=== PATIENT | male | born 1955 | race Two or more races ===

== ENCOUNTER 2018-07-06 13:13 | Emergency (ER) | payer SELFPAY ==
[~2018-07-06] VITALS: Ht 167.6 cm; Wt 54.4 kg
[2018-07-06] MEDS ORDERED: IV NORMAL SALINE 1000ML BAG 1,000 ML IV SCH (13:28)
[2018-07-06] MEDS ORDERED: fentaNYL PF VIAL 100 MCG/2 ML VIAL IV PRN (13:30)
[2018-07-06 13:43] LABS: BASO % 0 % (0-3); EOS % 0 % (0-3); HEMATOCRIT 44.4 % (39.0-53.0); HEMOGLOBIN 14.8 g/dL (13.0-17.5); LYMPH # 0.5 x10^3/uL (1.0-4.8); LYMPH % 2 % (24-48); MEAN CORPUSCULAR HEMOGLOBIN 30 pg (25-35); MEAN CORPUSCULAR HGB CONC 33 g/dL (31-37); MEAN CORPUSCULAR VOLUME 90 fL (79-100); MONO # 0.8 x10^3/uL (0.0-1.1); MONO % 4 % (0-9); NEUT # 18.4 x10^3uL (1.8-7.7); NEUT % 94 % (31-73); PLATELET COUNT 203 x10^3/uL (140-400); RED BLOOD COUNT 4.92 x10^6/uL (4.30-5.70); RED CELL DISTRIBUTION WIDTH 13.5 % (11.5-14.5); WHITE BLOOD COUNT 19.7 x10^3/uL (4.0-11.0)
[2018-07-06 13:50] LABS: CALCIUM 8.9 mg/dL (8.5-10.1); CREATININE 0.9 mg/dL (0.7-1.3)
[2018-07-06 13:56] LABS: ALBUMIN 3.9 g/dL (3.4-5.0); ALBUMIN/GLOBULIN RATIO 1.1 (1.0-1.7); MAGNESIUM 1.8 mg/dL (1.8-2.4); TOTAL BILIRUBIN 0.6 mg/dL (0.2-1.0); TOTAL PROTEIN 7.6 g/dL (6.4-8.2)
[2018-07-06 14:10] LABS: BILIRUBIN,URINE NEGATIVE (NEG); CLARITY,URINE CLEAR; COLOR,URINE YELLOW; NITRITE,URINE NEGATIVE (NEG); PROTEIN,URINE NEGATIVE (NEG-TRACE); UROBILINOGEN,URINE 0.2 mg/dL (0.2 mg/dL)
--- NOTE | 2018-07-06 14:10 | EKG ---
[facility] [address] [place] [address] Test Date: 2018-07-06 Test Time: 13:19:11 Pat Name: MARLEN EPPS Department: Room: Gender: M Service Assistant: : 1955 Requested By: CHELSEY SAUCEDA Order Number: [id number] Reading MD: Measurements Intervals [place] Rate: 117 P: -2 OR: 124 QRS: 83 QRSD: 88 T: 64 QT: 304 QTc: 428 Interpretive Statements SINUS TACHYCARDIA LEFT ATRIAL ABNORMALITY ABNORMAL ECG RI6.01 No previous ECG available for comparison
[2018-07-06 14:23] LABS: BACTERIA,URINE 0 /HPF (0-FEW); RBC,URINE OCC /HPF (0-2); WBC,URINE 0 /HPF (0-4)
--- NOTE | 2018-07-06 14:33 | PHYS DOC ---
Past Medical History Past Medical History: No Pertinent History Past Surgical History: Appendectomy Alcohol Use: None Drug Use: None Adult General Chief Complaint Chief Complaint: ABDOMINAL PAIN HPI HPI Patient is a 63-year-old male who presents with complaint of mid abdominal pain with nausea and diarrhea that started at about 9:00 this morning. Patient rates the pain in his abdomen at about a 6 out of 10. He describes pain as being dull and crampy. He denies any chest pain or shortness of breath. He denies any radiation of the pain in his abdomen. Patient also denies any fever. Patient states symptoms are worsened when he eats. Review of Systems Review of Systems Constitutional: Denies fever or chills [] Respiratory: Denies cough or shortness of breath [] Cardiovascular: No additional information not addressed in HPI [] GI: Complains of mid abdominal pain with nausea and diarrhea [] : Denies dysuria or hematuria [] Musculoskeletal: Denies back pain or joint pain [] Integument: Denies rash or skin lesions [] Neurologic: Denies headache, focal weakness or sensory changes [] All other systems were reviewed and found to be within normal limits, except as documented in this note. Current Medications Current Medications Current Medications Medications (Trade) Dose Ordered Sig/Pam Start Time Stop Time Status Last Admin Dose Admin Fentanyl Citrate (Fentanyl 2ml Vial) 25 mcg PRN Q15MIN PRN 07/06/18 13:30 07/07/18 13:29 07/06/18 13:55 25 MCG Info (CONTRAST GIVEN -- Rx MONITORING) 1 each PRN DAILY PRN 07/06/18 14:45 07/08/18 14:44 Iohexol (Omnipaque 300 Mg/ml) 75 ml 1X ONCE 07/06/18 14:45 07/06/18 14:46 DC 07/06/18 14:50 75 ML Sodium Chloride 1,000 ml @ 1,000 mls/hr Q1H 07/06/18 13:28 07/06/18 14:27 DC 07/06/18 13:55 1,000 MLS/HR Allergies Allergies Allergies Coded Allergies Type Severity Reaction Last Updated Verified No Known Drug Allergies 07/06/18 No Physical Exam Physical Exam Constitutional: Well developed, well nourished, no acute distress, non-toxic appearance. [] HENT: Normocephalic, atraumatic, bilateral external ears normal, oropharynx moist, no oral exudates, nose normal. [] Eyes: PERRLA, EOMI, conjunctiva normal, no discharge. [] Neck: Normal range of motion, no tenderness, supple, no stridor. [] Cardiovascular:Heart rate regular rhythm, no murmur [] Lungs & Thorax: Bilateral breath sounds clear to auscultation [] Abdomen: Bowel sounds normal, soft, with epigastric tenderness. [] Skin: Warm, dry, no erythema, no rash. [] Back: No tenderness, no CVA tenderness. [] Extremities: No tenderness, no cyanosis, no clubbing, ROM intact, no edema. [] Neurologic: Alert and oriented X 3, no focal deficits noted. [] Current Patient Data Vital Signs Vital Signs Date Time Temp Pulse Resp B/P (MAP) Pulse Ox O2 Delivery O2 Flow Rate FiO2 07/06/18 14:20 99.6 112 18 120/55 (76) 95 Room Air 99.6 Lab Values Laboratory Tests Test 07/06/18 13:30 07/06/18 13:50 07/06/18 13:55 07/06/18 14:35 White Blood Count 19.7 x10^3/uL (4.0-11.0) H Red Blood Count 4.92 x10^6/uL (4.30-5.70) Hemoglobin 14.8 g/dL (13.0-17.5) Hematocrit 44.4 % (39.0-53.0) Mean Corpuscular Volume 90 fL (79-100) Mean Corpuscular Hemoglobin 30 pg (25-35) Mean Corpuscular Hemoglobin Concent 33 g/dL (31-37) Red Cell Distribution Width 13.5 % (11.5-14.5) Platelet Count 203 x10^3/uL (140-400) Neutrophils (%) (Auto) 94 % (31-73) H Lymphocytes (%) (Auto) 2 % (24-48) L Monocytes (%) (Auto) 4 % (0-9) Eosinophils (%) (Auto) 0 % (0-3) Basophils (%) (Auto) 0 % (0-3) Neutrophils # (Auto) 18.4 x10^3uL (1.8-7.7) H Lymphocytes # (Auto) 0.5 x10^3/uL (1.0-4.8) L Monocytes # (Auto) 0.8 x10^3/uL (0.0-1.1) Eosinophils # (Auto) 0.0 x10^3/uL (0.0-0.7) Basophils # (Auto) 0.0 x10^3/uL (0.0-0.2) Segmented Neutrophils % 75 % (35-66) H Band Neutrophils % 21 % (0-9) H Lymphocytes % 1 % (24-48) L Atypical Lymphocytes % (Manual) 1 % (0-0) H Monocytes % 2 % (0-10) Platelet Estimate Adequate (ADEQUATE) Sodium Level 134 mmol/L (136-145) L Potassium Level 4.0 mmol/L (3.5-5.1) Chloride Level 97 mmol/L (98-107) L Carbon Dioxide Level 25 mmol/L (21-32) Anion Gap 12 (6-14) Blood Urea Nitrogen 16 mg/dL (8-26) Creatinine 0.9 mg/dL (0.7-1.3) Estimated GFR (Cockcroft-Gault) 85.0 BUN/Creatinine Ratio 18 (6-20) Glucose Level 271 mg/dL (70-99) H Calcium Level 8.9 mg/dL (8.5-10.1) Magnesium Level 1.8 mg/dL (1.8-2.4) Total Bilirubin 0.6 mg/dL (0.2-1.0) Aspartate Amino Transferase (AST) 16 U/L (15-37) Alanine Aminotransferase (ALT) 33 U/L (16-63) Alkaline Phosphatase 90 U/L (46-116) Troponin I Quantitative < 0.017 ng/mL (0.000-0.055) Total Protein 7.6 g/dL (6.4-8.2) Albumin 3.9 g/dL (3.4-5.0) Albumin/Globulin Ratio 1.1 (1.0-1.7) Lipase 91 U/L (73-393) Influenza Type A Antigen Negative (NEGATIVE) Influenza Type B Antigen Negative (NEGATIVE) Urine Collection Type Unknown Urine Color Yellow Urine Clarity Clear Urine pH 5.0 Urine Specific [place] >=1.030 Urine Protein Negative mg/dL (NEG-TRACE) Urine Glucose (UA) >=1000 mg/dL (NEG) Urine Ketones (Stick) >=80 mg/dL (NEG) Urine Blood Negative (NEG) Urine Nitrite Negative (NEG) Urine Bilirubin Negative (NEG) Urine Urobilinogen Dipstick 0.2 mg/dL (0.2 mg/dL) Urine Leukocyte Esterase Negative (NEG) Urine RBC Occ /HPF (0-2) Urine WBC 0 /HPF (0-4) Urine Bacteria 0 /HPF (0-FEW) Urine Mucus Slight /LPF Lactic Acid Level 1.0 mmol/L (0.4-2.0) Laboratory Tests 07/06/18 13:30 Laboratory Tests 07/06/18 13:30 EKG EKG [] Radiology/Procedures Radiology/Procedures [] Impressions: PROCEDURE: CT ABD PELV W/ IV CONTRST ONLY PQRS Compliance statement: One or more of the following individualized dose reduction techniques were utilized for this examination: 1. Automated exposure control. 2. Adjustment of the mA and/or kV according to patient size. 3. Use of iterative reconstruction technique. Indication:UMBILICAL PAIN AND DIARRHEA X LAST NIGHT INJ 75ML OMNI 300 NO PREV TECHNIQUE: CT abdomen and pelvis with IV contrast with multiplanar reformats. COMPARISON: None FINDINGS: Heart is normal in size. No pericardial or pleural effusion. Clear lung bases. Liver, spleen, gallbladder, pancreas, adrenals and kidneys are within normal limits. No enlarged retroperitoneal or pelvic adenopathy. Small fat-containing right inguinal hernia. No free pelvic fluid or ascites. No bowel obstruction. Diffuse fluid-filled small bowel loops are seen with circumferential wall thickening. Diffuse mucosal enhancement is seen of the small bowel. The prostate and seminal vesicles show no large mass. Urinary bladder is within normal limits. No pneumoperitoneum or pneumatosis intestinalis. No suspicious bony lesion. IMPRESSION: Findings suggests long segment enteritis which may be inflammatory or infectious. No bowel obstruction. Electronically signed by: Yuri Brady DO (07/06/2018 3:08 PM) [id number] Course & Med Decision Making Course & Med Decision Making Pertinent Labs and Imaging studies reviewed. (See chart for details) [] Dragon Disclaimer Dragon Disclaimer This electronic medical record was generated, in whole or in part, using a voice recognition dictation system. Departure Departure Impression: Primary Impression: Enteritis Additional Impression: Type 2 diabetes mellitus Disposition: 01 HOME, SELF-CARE Condition: STABLE Referrals: UNKNOWN PCP NAME (PCP) Patient Instructions: Type 2 Diabetes Mellitus, Adult, Viral Gastroenteritis Scripts Metformin Hcl (METFORMIN HCL) 500 Mg Tablet 500 MG PO BIDWMEALS for ANTI-DIABETIC for 30 Days, #60 TAB 0 Refills Prov: CHELSEY SAUCEDA Jr. DO 07/06/18 Ondansetron Hcl (ZOFRAN) 4 Mg Tablet 4 MG PO PRN TID PRN for NAUSEA, #15 nausea/vomiting Prov: CHELSEY SAUCEDA Jr. DO 07/06/18 Hydrocodone/Apap 5-325 (NORCO 5-325 TABLET) 1 Each Tablet 1 EACH PO PRN Q6HRS PRN for PAIN, #15 as needed for pain Prov: CHELSEY SAUCEDA Jr. DO 07/06/18 Metronidazole (FLAGYL) 500 Mg Tablet 500 MG PO TID, #30 TAB Prov: CHELSEY SAUCEDA Jr. DO 07/06/18 Ciprofloxacin Hcl (CIPRO) 500 Mg Tablet 1 TAB PO BID, #20 TAB Prov: CHELSEY SAUCEDA Jr. 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 DO Jul 06, 2018 14:33
[2018-07-06 14:39] LABS: INFLUENZA A PATIENT NEGATIVE (NEGATIVE); INFLUENZA B PATIENT NEGATIVE (NEGATIVE)
[2018-07-06] MEDS ORDERED: IOHEXOL 300 MG/ML 100ML VIAL. IV ONE (14:45)
[2018-07-06] MEDS ORDERED: CONTRAST GIVEN. MC PRN (14:45)
--- NOTE | 2018-07-06 15:13 | RAD ---
PQRS Compliance statement: One or more of the following individualized dose reduction techniques were utilized for this examination: 1. Automated exposure control. 2. Adjustment of the mA and/or kV according to patient size. 3. Use of iterative reconstruction technique. Indication:UMBILICAL PAIN AND DIARRHEA X LAST NIGHT INJ 75ML OMNI 300 NO PREV TECHNIQUE: CT abdomen and pelvis with IV contrast with multiplanar reformats. COMPARISON: None FINDINGS: Heart is normal in size. No pericardial or pleural effusion. Clear lung bases. Liver, spleen, gallbladder, pancreas, adrenals and kidneys are within normal limits. No enlarged retroperitoneal or pelvic adenopathy. Small fat-containing right inguinal hernia. No free pelvic fluid or ascites. No bowel obstruction. Diffuse fluid-filled small bowel loops are seen with circumferential wall thickening. Diffuse mucosal enhancement is seen of the small bowel. The prostate and seminal vesicles show no large mass. Urinary bladder is within normal limits. No pneumoperitoneum or pneumatosis intestinalis. No suspicious bony lesion. IMPRESSION: Findings suggests long segment enteritis which may be inflammatory or infectious. No bowel obstruction. Electronically signed by: Yuri Brady DO (07/06/2018 3:08 PM) [id number]
[2018-07-06 15:26] LABS: % ATYL 1 % (0-0); % BANDS 21 % (0-9); % LYMPHS 1 % (24-48); % MONOS 2 % (0-10); % SEGS 75 % (35-66); PLT ESTIMATE ADEQUATE (ADEQUATE)
[2018-07-06] MEDS ORDERED: METF500T16 PO (16:05)
[2018-07-06] MEDS ORDERED: HYDR-3164 PO (16:05)
[2018-07-06] MEDS ORDERED: CIPR500T94 PO (16:05)
[2018-07-06] MEDS ORDERED: ONDA4TAB7 PO (16:05)
[2018-07-06] MEDS ORDERED: METR500T PO (16:05)
[2018-07-06 16:21] VITALS: BP 129/69
== END 2018-07-06 16:28 | disposition home or self-care (01) ==
LOC: ER 13:13
DX: K52.9 Noninfective gastroenteritis and colitis, unspecified (principal); E11.9 Type 2 diabetes mellitus without complications; Z90.89 Acquired absence of other organs
CPT/HCPCS: 36415; 74177; 80053; 81001; 83605; 83690; 83735; 84484; 85007; 85025; 87040; 87804; 93005; 96361; 96374; 99284; J3010; J7030; Q9967